=== PATIENT | female | born 1990 | race Caucasian/White ===

== ENCOUNTER 2020-09-27 17:38 | Observation (INO) | payer OTHER ==
[~2020-09-27 17:38] MED LIST: MACROBID 100 M100 M1 PO; NORCO 5-325 TA1 EACH PO; TRANDATE 100 M100 MG PO
[2020-09-27 19:24] LABS: HEMOGLOBIN 10.4 gm/dl (12.3-15.3); RED BLOOD COUNT 3.85 M/UL (4.00-5.10); WHITE BLOOD COUNT 9.2 K/UL (4.5-11.0)
[2020-09-27 19:36] LABS: BUN/CREATININE RATIO 10 (0-10)
== END 2020-09-27 21:18 | disposition home or self-care (01) ==
LOC: GENOP 17:38 → OB 17:54
PROVIDERS: ADMIT Obstetrics & Gynecology
DX: O14.03 Mild to moderate pre-eclampsia, third trimester (principal); O36.8130 Decreased fetal movements, third trimester, not applicable or unspecified; O99.891 Other specified diseases and conditions complicating pregnancy; O99.353 Diseases of the nervous system complicating pregnancy, third trimester; O34.219 Maternal care for unspecified type scar from previous cesarean delivery; O99.343 Other mental disorders complicating pregnancy, third trimester; O23.43 Unspecified infection of urinary tract in pregnancy, third trimester; O26.613 Liver and biliary tract disorders in pregnancy, third trimester; R74.8 Abnormal levels of other serum enzymes; R10.9 Unspecified abdominal pain; M54.9 Dorsalgia, unspecified; G43.909 Migraine, unspecified, not intractable, without status migrainosus; F41.8 Other specified anxiety disorders; Z20.822 Contact with and (suspected) exposure to COVID-19; Z3A.36 36 weeks gestation of pregnancy
CPT/HCPCS: 36415; 80053; 82570; 84156; 84550; 85025; G0378; G0463; U0002

== ENCOUNTER → 2020-09-29 | Outpatient (CLI) | payer OTHER ==
[~2020-09-29] MED LIST changes: +DOCUSATE SODIU100 MG PO; +HYDROCODON-ACE1 EAC6 PO; +IBUPROFEN600 MG PO; +PRENATABS FA T1 EACH PO
[2020-09-29 12:30] LABS: HEMOGLOBIN 10.9 gm/dl (12.3-15.3); RED BLOOD COUNT 4.09 M/UL (4.00-5.10); WHITE BLOOD COUNT 9.6 K/UL (4.5-11.0)
== END ==
LOC: GENOP 11:52
PROVIDERS: Obstetrics & Gynecology
DX: Z01.812 Encounter for preprocedural laboratory examination (principal); Z3A.36 36 weeks gestation of pregnancy
CPT/HCPCS: 36415; 81001; 85025

== ENCOUNTER 2020-09-30 05:37 | Inpatient (IN) | payer OTHER ==
[~2020-09-30] VITALS: Ht 165.1 cm; Wt 108.4 kg
[~2020-09-30 05:37] MED LIST changes: -DOCUSATE SODIU100 MG PO; -HYDROCODON-ACE1 EAC6 PO; -IBUPROFEN600 MG PO; -PRENATABS FA T1 EACH PO
[2020-09-30] MEDS ORDERED: TRANDATE 100 M100 MG PO (06:24)
[2020-09-30] MEDS ORDERED: PRENATABS FA T1 EACH PO (06:25)
[2020-09-30] MEDS ORDERED: HYDROCODON-ACE1 EAC6 PO (08:38)
[2020-09-30] MEDS ORDERED: DOCUSATE SODIU100 MG PO (08:38)
[2020-09-30] MEDS ORDERED: IBUPROFEN600 MG PO (08:38)
== END 2020-09-30 18:13 | disposition short-term general hospital (02) | DRG 788 ==
LOC: OB 05:37
PROVIDERS: ADMIT Obstetrics & Gynecology
PROC: 10D00Z1 Extraction of Products of Conception, Low, Open Approach (ICD-10-PCS; principal; 2020-09-30 08:45)
DX: O13.4 Gestational [pregnancy-induced] hypertension without significant proteinuria, complicating childbirth (principal); Z3A.36 36 weeks gestation of pregnancy; Z37.0 Single live birth
CPT/HCPCS: 36415; 80053; 81001; 82570; 82800; 84156; 84550; 85025; C9113; G0378; G0463; J0690; J1885; J2274; J2405; J2590; J3010; J7120; U0002